=== PATIENT | female | born 1930 | race Caucasian/White ===

== ENCOUNTER → 2021-10-19 | Outpatient (CLI) | payer MEDICARE, MEDICAID ==
[~2021-10-19] VITALS: Ht 154.9 cm; Wt 71.7 kg
[~2021-10-19] MED LIST: CEFAZOLIN SOD 1 GM/ ISO 50 ML PREMIX IV ONE
== END | disposition home or self-care (01) ==
LOC: SLB 10:00 → EDSTATUS 10-23 12:00
PROVIDERS: ATTEND Colon & Rectal Surgery
DX: Z01.812 Encounter for preprocedural laboratory examination (principal); K80.10 Calculus of gallbladder with chronic cholecystitis without obstruction; Z20.822 Contact with and (suspected) exposure to COVID-19
CPT/HCPCS: 36415; U0003; J0690

== ENCOUNTER 2022-04-08 07:25 | Day surgery (SDC) | payer MEDICARE, MEDICAID ==
[~2022-04-08] VITALS: Ht 162.6 cm; Wt 68.0 kg
[~2022-04-08 07:25] MED LIST changes: +CEFAZOLIN SOD 1 GM in D5W 50 ML IV ONE; -CEFAZOLIN SOD 1 GM/ ISO 50 ML PREMIX IV ONE
[2022-04-08] MEDS ORDERED: PROPOFOL 200MG/ 20ML VIAL (DIPRIVAN) IV ONE (12:05)
[2022-04-08] MEDS ORDERED: LR 1,000 ML IV.SOLN IV ONE (12:05)
[2022-04-08] MEDS ORDERED: LIDOCAINE 1% 10 MG/ML, 20 ML MDV INJ ONE (12:05)
[2022-04-08] MEDS ORDERED: METOCLOPRAMIDE HCL 10 MG/2 ML VIAL IVP PRN (12:30)
[2022-04-08] MEDS ORDERED: LR 1,000 ML IV SCH (12:30)
[2022-04-08] MEDS ORDERED: MEPERIDINE HCL/PF 25 MG/ML DISP.SYRIN IVP PRN (12:30)
[2022-04-08] MEDS ORDERED: LABETALOL 100 MG/ 20ML VIAL IVP PRN (12:30)
[2022-04-08] MEDS ORDERED: hydrALAZINE HCL 20 MG/ML VIAL IVP PRN (12:30)
[2022-04-08] MEDS ORDERED: HYDROmorphone 1 MG/ML INJ. CARTRIDGE IVP PRN ×3 (12:30)
[2022-04-08 19:33] VITALS: BP_SYST 159
== END 2022-04-08 14:20 | disposition home or self-care (01) ==
LOC: SDS 07:25 → SMU 07:26 → SDS 14:20
PROVIDERS: ATTEND Colon & Rectal Surgery
DX: Z12.11 Encounter for screening for malignant neoplasm of colon (principal); D12.5 Benign neoplasm of sigmoid colon; K57.30 Diverticulosis of large intestine without perforation or abscess without bleeding; K80.10 Calculus of gallbladder with chronic cholecystitis without obstruction; I10 Essential (primary) hypertension; J44.9 Chronic obstructive pulmonary disease, unspecified; Z20.822 Contact with and (suspected) exposure to COVID-19; Z79.899 Other long term (current) drug therapy
CPT/HCPCS: 36415 ×2; 45385; 87426; 88305; U0003; J2001; J2704; J7120; J7030; J0690; J7060